=== PATIENT | male | born 2000 | race Caucasian/White ===

== ENCOUNTER 2024-08-17 21:10 | Emergency (ER) | payer OTHER, SELFPAY ==
[2024-08-17 21:11] VITALS: BP 119/63; PULSE 71; RESP 18; TEMP 36.6; O2SAT 100; BMI 28.2
--- NOTE | 2024-08-17 21:28 | EDS_ITS ---
HPI History of Present Illness Chief Complaint: Chest Pain Narrative Narrative: Patient presents with chest pain that began yesterday. Patient states it is been waxing and waning since yesterday. Patient describes it as dull but sharp at times. Patient also states he feels a fluttering in his chest at times. Patient states his pain is mainly over the substernal area. Patient states nothing makes it better and nothing makes it worse. Patient denies any nausea or vomiting. Patient denies any shortness of breath or cough. Patient denies any diaphoresis. Patient is a smoker but denies any other cardiac or PE risk factors. CVD Risk Factors: Positive for Smoking; Negative for Hypertension, Diabetes, Hypercholesterolemia or Family History 1' </=55 PE Risk Factors: Negative for Recent Travel/Surgery, Recent Immobilization, Prior DVT or PE, Cancer or OCP + Smoking + >/=35 PFSH PFSH Medical History no medical history no medical history Home Medications ?Medication ?Instructions ?Recorded ?Last Taken ?Type NK 08/17/24 Unknown History Allergy/AdvReac Type Severity Reaction Status Date / Time No Known Allergies Allergy Verified 08/17/24 21:13 Surgical History no surgical history no surgical history Social History (Updated 08/17/24 @ 22:[address] Michael Hickman, DO) Smoking Status: Current some day smoker tobacco type: cigarettes ROS ROS ED Constitutional Constitutional ED: Denies chills or fever(s) Eyes Eyes: Denies blurry vision or change in vision ENT ENT ED: Denies rhinorrhea or sore throat Cardiovascular Cardiovascular: Reports chest pain and palpitations Respiratory/Chest Respiratory/Chest: Denies cough or dyspnea Gastrointestinal Gastrointestinal: Denies nausea or vomiting Genitourinary Genitourinary ED: Denies dysuria or hematuria Musculoskeletal Musculoskeletal: Reports back pain; Denies neck pain Integumentary Denies abscess or rash Neurologic Neurologic: Denies headache(s) or weakness Allergic/Immunologic Allergic/Immunologic ED: Denies mouth swelling or urticaria EXAM Physical Exam Const Vital Signs: 08/17/24 21:11 08/17/24 21:28 08/17/24 21:50 Temperature 97.9 F Temperature Source Temporal Pulse Rate 71 Respiratory Rate 18 Respiratory Effort Normal Non-Labored Blood Pressure 119/63 Blood Pressure Mean 81 Pulse Ox 100 Oxygen Delivery Method Room Air Room Air 08/17/24 22:11 08/17/24 22:15 Temperature Temperature Source Pulse Rate 65 64 Respiratory Rate 13 13 Respiratory Effort Blood Pressure 125/69 H Blood Pressure Mean 86 Pulse Ox 98 Oxygen Delivery Method Positive well nourished and well developed General Appearance ED: well developed and NAD HEENT Reports moist mucous membranes Neck supple and no JVD Resp normal respiratory effort and clear to auscultation bilaterally Cardio regular rate and regular rhythm GI soft to palpation, non-tender and non-distended Extremity normal to inspection General Extremety ED: Negative for edema or tenderness General Extremity: Negative for edema Neuro oriented x3, CN's II-XII intact bilaterally and no sensory deficits noted Sensorium / Orientation: awake and alert Motor Exam: strength 5/5 throughout Psych mental status grossly normal Heart Score History: Slightly/Non-Suspicious ECG: Normal Age: </= 45 years Risk Factors: 1 or 2 Risk Factors Troponin: </= Normal Limit Score: 1 MDM MDM MDM Narrative Medical decision making narrative: Differential diagnosis includes cardiac dysrhythmia, cardiac ischemia, pneumonia, electrolyte abnormality, gastroesophageal reflux disease, musculoskeletal pain, and anxiety. EKG will be obtained to assess for cardiac dysrhythmia and cardiac ischemia. Chest x-ray will be obtained to assess for pneumonia and pneumothorax. CBC will be obtained to assess for leukocytosis and anemia. Basic metabolic profile will be obtained to assess for electrolyte abnormality and renal function. High-sensitivity troponin will be obtained to assess for cardiac ischemia. Lab Data Attestation: I reviewed the patient's lab results. Lab results narrative: CBC was reviewed and was within normal limits. Basic metabolic profile was re viewed and was within normal limits. High-sensitivity troponin was reviewed and was normal at 10. Labs: Laboratory Results - last 24 hr 08/17/24 21:29 WBC 5.3 RBC 4.83 Hgb 15.2 Hct 42.7 MCV 88.4 MCH 31.5 MCHC 35.6 RDW Std Deviation 39.4 RDW Coeff of Lucy 12.1 Plt Count 211 MPV 9.5 Immature Gran % (Auto) 0.200 Neut % (Auto) 35.3 L Lymph % (Auto) 50.0 H [place] % (Auto) 9.9 Eos % (Auto) 3.9 Baso % (Auto) 0.7 Absolute Neuts (auto) 1.9 L Absolute Lymphs (auto) 2.67 Nucleated RBC % 0 Sodium 139 Potassium 4.0 Chloride 108 H Carbon Dioxide 26.0 Anion Gap 5 BUN 17 Creatinine 0.97 Estim Creat Clear Calc 108.55 Est GFR (MDRD) Af Amer 122 Est GFR (MDRD) Non-Af 101 BUN/Creatinine Ratio 17.5 Glucose 111 H Calcium 9.0 Troponin I High Sens 10 Radiography Chest X-Ray - ED: 2 View, Read by ED Physician, Read by Radiologist and No Acute Disease Diagnostic Testing: Clinical Impression(s) from Imaging Studies Chest X-Ray 08/17/24 22:05 IMPRESSION: Normal x-ray examination of the chest. Electronically Signed: Gurjit Levin MD at 22:41 EST , PA and lateral chest x-ray was obtained. There are 2 views. On my independent interpretation, lung eaton are clear. There is normal cardiac silhouette. Bony thorax is normal. There is no acute process noted. Radiologist also interpreted the x-ray and agrees. EKG Initial EKG: Attestation: I personally reviewed and interpreted this EKG as follows: Interpretation: Sinus Rhythm (75) and No Acute Injury Pattern Comments: EKG was obtained. On my independent interpretation, it showed a normal sinus rhythm with a rate of 75. [place] interval, QRS interval, and QTc intervals were all normal. [place] was normal. There are no acute ST or T wave changes. Prior EKG tracings: not available for review Prior: No Prior Treatment and Re-Evaluation :: Smoking cessation was discussed. Patient was ordered aspirin but patient refused this. Patient was advised of his findings. Patient has a HEART score of 1. Patient was advised that this is low risk for acute cardiac event. Patient was instructed to follow-up with his primary care physician in 5 to 7 days for further evaluation. Patient understood and was agreeable with the plan. All questions were answered. Discharge Plan Triage Chief Complaint: Chest Pain ED Provider: Michael Hickman Dx/Rx/DC Orders Clinical Impression: Chest pain, Tobacco use Instructions: ED Chest Pain, Uncertain Cause Prescriptions: No Action NK Primary Care Provider: NOT,DEFINED Referrals: NOT,DEFINED [Primary Care Provider] - 5-7 Days Print Language: Estonian Disposition Disposition: Home, Self Care
--- NOTE | 2024-08-17 21:28 | EKG12_ITS ---
Test Reason : CP Blood Pressure : */* mmHG Vent. Rate : 75 BPM Atrial Rate : 75 BPM P-R Int : 116 ms QRS Dur : 102 ms QT Int : 392 ms P-R-T Axes : 9 54 17 degrees QTcB Int : 437 ms Normal sinus rhythm Normal ECG Confirmed by DAVID SHOOK ([id number]), content editor MONICA PAN ([id number]) on 08/19/2024 11:56:30 AM Referred By: Michael Hickman Confirmed By: DAVID SHOOK
[2024-08-17 21:39] LABS: Absolute Lymphocyte Count 2.67 X10^3/uL (0.83-4.51); Absolute Neutrophil Count 1.9 X10^3/uL (2.0-7.7); Basophil# 0.04 X10^3/uL; Basophil% 0.7 % (0-1); Eosinophil# 0.21 X10^3/uL; Eosinophils% 3.9 % (0-5); Hematocrit 42.7 % (40-54); Hemoglobin 15.2 g/dL (13.0-16.5); Lymphocyte # 2.67 X10^3/ul (0.83-4.51); Mean Corp Hgb Conc 35.6 g/dL (32-36); Mean Corpuscular Hgb 31.5 pg (27.0-32.0); Mean Corpuscular Volume 88.4 fL (80-94); Mean Platelet Vol. 9.5 fl (6.2-12.0); Monocyte# 0.53 X10^3/uL; Monocyte% 9.9 % (0-10); NRBC Flagged by Analyzer 0 % (0-5); Neutrophil # 1.88 X10^3/uL (2.7-7.7); Neutrophil % 35.3 % (47-70); Platelet Count 211 K/mm3 (150-450); RBC Distribution Width CV 12.1 % (11.6-14.6); RBC Distribution Width SD 39.4 fl (35.1-43.9); Red Blood Count 4.83 M/mm3 (4.6-6.2); White Blood Count 5.3 K/mm3 (4.4-11.0)
[2024-08-17 21:57] LABS: Anion Gap 5 (5-15); BUN 17 mg/dL (7-18); BUN/Creat Ratio 17.5 RATIO (10-20); Chloride 108 mmol/L (98-107); Creatinine, Serum 0.97 mg/dL (0.70-1.30); EST Glomerular Filtration Rate 101 mL/min (>60); Est Glom Filt Rate - Afr Amer 122 mL/min (>60); Estimated Creatinine Clearance 108.55 ml/min; Glucose 111 mg/dL (74-106); Sodium Level 139 mmol/L (136-145); Troponin-I HS 10 pg/mL (3.0-78.0)
--- NOTE | 2024-08-17 22:05 | RAD_ITS ---
STUDY: X-RAY CHEST REASON FOR EXAM: Male, 24 years old. chest pain TECHNIQUE: Frontal and lateral views of the chest. COMPARISON: None. FINDINGS: The lungs are clear and expanded. There is no demonstrated pleural abnormality. Normal size heart. Normal mediastinum and [place]. Normal visualized pulmonary arteries. Normal visualized aortic arch and descending thoracic aorta. Normal visualized thoracic spine. Normal visualized ribs, clavicles, and shoulders. There is no demonstrated abnormality of the visualized soft tissue structures of the upper abdomen. RAD/Chest PA and Lateral IMPRESSION: Normal x-ray examination of the chest. Electronically Signed: Gurjit Levin MD at 22:41 EST ,
[2024-08-17 22:11] VITALS: PULSE 65; RESP 13
[2024-08-17 22:15] VITALS: BP 125/69; PULSE 64; RESP 13; O2SAT 98
[2024-08-17 23:05] VITALS: BP 122/70; PULSE 61; RESP 17; TEMP 36.3; O2SAT 98
== END 2024-08-17 23:06 | disposition home or self-care (01) ==
PROVIDERS: Emergency Provider Emergency Medicine; Referring Provider Emergency Medicine; Visit Provider Emergency Medicine
DX: R07.9 Chest pain, unspecified (principal); F17.210 Nicotine dependence, cigarettes, uncomplicated; Z71.6 Tobacco abuse counseling
CPT/HCPCS: 71046; 80048; 84484; 85025; 93005; 99283; A4216